=== PATIENT | female | born 1945 | race Caucasian/White ===

== ENCOUNTER → 2019-08-16 | Outpatient (CLI) | payer MEDICARE | END | disposition home or self-care (01) | LOC: LABWHC1 12:10 | PROVIDERS: ATTEND Orthopaedic Surgery | DX: M25.512 Pain in left shoulder (principal); E55.9 Vitamin D deficiency, unspecified | CPT/HCPCS: 36415; 82306 ==

== ENCOUNTER → 2024-06-10 | Outpatient (CLI) | payer MEDICARE ==
--- NOTE | 2024-06-11 15:52 | MR ---
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 COMPARISON: None. TECHNIQUE: Multi planar, multi sequence imaging was performed through the brain without administratio n of intravenous contrast. FINDINGS: The beckman-white junctions, ventricular system, basal cisterns appear unremarkable. Mild to moderate di ffuse cerebral parenchymal volume loss. Diffusion-weighted imaging shows no evidence of restricted di ffusion to suggest acute/subacute infarct. Intracranial arterial flow voids are maintained. Midline s tructures show no abnormality. Patchy areas of high T2/FLAIR signal intensity are seen within the sub cortical and periventricular white matter. Additional involvement of the simone. The hippocampi appear symmetric. The susceptibility weighted images do not reveal any evidence for micro-hemorrhage. The bone marrow signal is within normal limits. The globes are unremarkable. Minimal mucosal thickeni ng of the anterior ethmoid sinuses and right maxillary sinus. IMPRESSION: 1. No evidence of intracranial mass or acute/subacute infarct. 2. Nonspecific minimal white matter changes, likely related to small vessel ischemic disease. Demyeli nating disease, chronic migraines, vasculitis, Lyme disease are other considerations. [facility], , 06/11/2024 3:49 PM
== END | disposition home or self-care (01) ==
LOC: RADMRIMAIN 14:37
PROVIDERS: ATTEND Psychiatry & Neurology Neurology
DX: G30.9 Alzheimer's disease, unspecified (principal); G43.909 Migraine, unspecified, not intractable, without status migrainosus
CPT/HCPCS: 70551